=== PATIENT | female | born 1960 ===

== ENCOUNTER 2020-11-11 08:05 | Day surgery (SDC) | payer OTHER ==
[~2020-11-11 08:05] MED LIST: ALDACT PO; CATAFLAN PO; DIOVAN320 MG PO; GABAPENT PO; NASAL MIST126 ML; NORFL PO; TOPROL XL50 M1 PO; TRAM PO; ULTRA PO
== END 2020-11-11 15:00 | disposition home or self-care (01) ==
LOC: CIR.AMB 08:05
PROVIDERS: ATTEND Orthopaedic Surgery
DX: M17.12 Unilateral primary osteoarthritis, left knee (principal); Z20.822 Contact with and (suspected) exposure to COVID-19

== ENCOUNTER 2023-09-20 07:26 | Day surgery (SDC) | payer OTHER ==
[2023-09-14 11:20] LABS: PH,URINE 5.5 (5.0-8.0); URINE APPEARANCE Clear; URINE BILIRRUBIN Negative (NEGATIVE); URINE BLOOD Negative; URINE COLOR Yellow; URINE GLUCOSE Negative (NEGATIVE); URINE LEUKOCYTE Negative; URINE NITRATE Negative; URINE PROTEIN Negative (NEGATIVE); URINE UROBILINOGEN 0.2 E.U./dl
[2023-09-14 11:26] LABS: URINE RBC 4.7 uL (0.0-20.8); URINE WBC 5.2 uL (0.0-23.2)
[2023-09-14 11:56] LABS: HEMATOCRIT 32.9 % (36.0-45.00); HEMOGLOBIN 10.6 g/dL (12.0-15.00); MEAN CELL VOLUME 85.9 fL (80.00-100.00); MEAN CORPUSCULAR HEMOGLOBIN 27.8 pg (27.00-32.0); MEAN CORPUSCULAR HGB CONC 32.3 g/dl (32.0-36.0); PLATELET COUNT 302 K/uL (150-450); RED BLOOD COUNT 3.83 M/uL (4.00-6.00); RED CELL DISTRIBUTION WIDTH 20.6 % (11.5-14.5)
[2023-09-14 12:25] LABS: ALBUMIN 3.6 gm/dL (3.4-5.0); BILIRUBIN TOTAL 0.25 mg/dL (0.3-1.2); CALCIUM 9.3 mg/dL (8.5-10.1); CREATININE SERUM 1.16 mg/dL (0.55-1.02); GFR 47.03; GLOBULINA 3.4 G/DL (2.4-3.5); INR 0.95; PARTIAL THROMBOPLASTIN TIME 28.5 SECONDS (22.0-34.0); POTASSIUM 4.17 mEq/L (3.5-5.1)
[~2023-09-20 07:26] MED LIST changes: +ALDACTONE; +ASA325 MG PO; +AVALIDE 300-121 EACH PO; +FOLIC ACID0.8 M1; +INTEGRA PLUS C1 EACH PO; +NORFLEX; +NORVASC10 MG PO; +PERCOCET 5-3251 EACH; +PLETAL; +PROTONIX; +RANOLAZINE 500 MG; +TRAMADOL HCL50 MG PO; +TRENTRAL; +[UNRECOGNIZED DRUG - OTHER]; +[UNRECOGNIZED DRUG - OTHER]
[2023-09-20] MEDS ORDERED: CEFAZOLIN SODIUM 1,000 MG VIAL IV ONE (10:45)
[2023-09-20] MEDS ORDERED: KETOROLAC TROMETHAMINE 30 MG VIAL IJ ONE (10:45)
[2023-09-20] MEDS ORDERED: LIDOCAINE HCL 1%/Epi 20ML VIAL IJ ONE ×2 (10:45→11:01)
[2023-09-20] MEDS ORDERED: KETOROLAC TROMETHAMINE 30 MG VIAL IV ONE (10:45)
[2023-09-20] MEDS ORDERED: BUPIVACAINE HCL/MPF 0.5% 30ML VIAL IJ ONE (10:45)
[2023-09-20] MEDS ORDERED: KETOROLAC TROMETHAMINE 30 MG VIAL ONE (11:00)
[2023-09-20] MEDS ORDERED: CEFAZOLIN SODIUM 1,000 MG VIAL ONE (11:01)
[2023-09-20] MEDS ORDERED: BUPIVACAINE HCL/PF 0.5% 30ML ML ONE (11:01)
== END 2023-09-20 16:00 | disposition home or self-care (01) ==
LOC: CIR.AMB 07:26
PROVIDERS: ATTEND Orthopaedic Surgery
DX: M77.11 Lateral epicondylitis, right elbow (principal); S56.301A Unspecified injury of extensor or abductor muscles, fascia and tendons of right thumb at forearm level, initial encounter